=== PATIENT | female | born 1970 | race Caucasian/White ===

== ENCOUNTER → 2017-06-24 | Outpatient (CLI) | payer OTHER ==
[~2017-06-24] MED LIST: ATOR-22 PO; DILT60TA PO; OMEP40CA41 PO; TRAZ100T29 PO; ZNTT/150 PO
--- NOTE | 2017-06-24 13:56 | DIAGNOSTIC IMAGING REPORT ---
GASTRIC EMPTYING CLINICAL HISTORY: 46 years-old Female presenting with gastroesophageal reflux without esophagitis, abdominal bloating. TECHNIQUE: Following the oral administration of 1.1 mCi of technetium 99m sulfur colloid in egg sandwich and 8 ounces of water, static abdominal images are obtained anteriorly and posteriorly at 0 minutes, 1 hour, 2 hour, and 4 hour time intervals. Gastric emptying was calculated utilizing the geometric mean method. COMPARISON: None. FINDINGS: There is approximately 78% activity remaining at the 1 hour time interval, 49% remaining at the 2 hour time interval (normal is less than 60%), and 1% activity remaining at the 4 hour time interval (normal is less than 10%). IMPRESSION: Findings are consistent with normal gastric emptying. Electronically signed by: Alvaro Bey M.D. 06/24/2017 1:54 PM Dictated Date/Time: 06/24/2017 1:53 PM
== END | disposition home or self-care (01) ==
LOC: C.NUCL 08:48
PROVIDERS: ATTEND Physician Assistant
DX: K21.9 Gastro-esophageal reflux disease without esophagitis (principal); R14.0 Abdominal distension (gaseous)

== ENCOUNTER 2017-08-31 12:20 | Observation (INO) | payer OTHER ==
[~2017-08-31] VITALS: Ht 165.1 cm; Wt 102.4 kg
[2017-08-31] MEDS ORDERED: ZNTT/150 PO (12:52)
[2017-08-31] MEDS ORDERED: ATOR-22 PO (12:52)
[2017-08-31] MEDS ORDERED: DILT60TA PO (12:52)
[2017-08-31] MEDS ORDERED: TRAZ100T29 PO (12:52)
[2017-08-31] MEDS ORDERED: OMEP40CA41 PO (12:52)
--- NOTE | 2017-08-31 13:11 | DIAGNOSTIC IMAGING REPORT ---
CHEST ONE VIEW PORTABLE HISTORY: 46 years-old Female Chest Pain acute atypical chest pain. Initial exam COMPARISON: None available TECHNIQUE: Portable upright AP view of the chest FINDINGS: Cardiomediastinal and hilar silhouettes are within normal limits. There is no pneumothorax or pleural effusion. Subsegmental left basilar opacity suggests atelectasis. No lobar airspace consolidation. The bones are grossly intact. IMPRESSION: Subsegmental left basilar opacity suggests atelectasis. Otherwise unremarkable chest. The above report was generated using voice recognition software. It may contain grammatical, syntax or spelling errors. Electronically signed by: Yemi Diamond M.D. 08/31/2017 1:09 PM Dictated Date/Time: 08/31/2017 1:08 PM
[2017-08-31 13:40] LABS: BASO % 0.2 %; BASO ABS # 0.02 K/uL (0-0.2); COMPLETE YES; EOS % 1.6 %; HEMATOCRIT 44.2 % (37-47); IG% 0.2 %; LYMPH % 27.8 %; LYMPH ABS # 2.47 K/uL (1.2-3.4); MEAN CELL VOLUME 93.1 fL (80-100); MEAN CORPUSCULAR HEMOGLOBIN 31.8 pg (25-34); MEAN CORPUSCULAR HGB CONC 34.2 g/dl (32-36); MEAN PLATELET VOLUME 9.8 fL (7.4-10.4); MONO % 7.6 %; NEUT % 62.6 %; PLATELET COUNT 191 K/uL (130-400); RED BLOOD COUNT 4.75 M/uL (4.2-5.4); WHITE BLOOD COUNT 8.87 K/uL (4.8-10.8)
[2017-08-31 13:57] LABS: BLOOD UREA NITROGEN 9 mg/dl (7-18); BUN/CREATININE RATIO 11.6 (10-20); CALCIUM 9.4 mg/dl (8.5-10.1); CARBON DIOXIDE 23 mmol/L (21-32); CHLORIDE 106 mmol/L (98-107); CREATININE 0.79 mg/dl (0.60-1.20); GLUCOSE 99 mg/dl (70-99); POTASSIUM 3.8 mmol/L (3.5-5.1); SODIUM 139 mmol/L (136-145)
[2017-08-31 14:02] LABS: CKMB/CK RATIO 0.9 (0-3.0)
--- NOTE | 2017-08-31 14:40 | DIAGNOSTIC IMAGING REPORT ---
CT SCAN OF THE BRAIN WITHOUT IV CONTRAST CLINICAL HISTORY: Headache. COMPARISON STUDY: No priors. TECHNIQUE: Unenhanced axial CT scan of the brain is performed from the vertex to the skull base. A dose lowering technique was utilized adhering to the principles of ALARA. CT DOSE: 638.56 mGycm FINDINGS: Brain parenchyma: The brain parenchyma is normal in appearance. There is no hemorrhage, mass effect, or evidence of acute territorial ischemia by CT criteria. Rose-white matter is preserved. No extra-axial fluid collection is seen. Ventricles, sulci, cisterns: Normal in configuration. Intracranial vasculature: The visualized intracranial vasculature at the skull base is normal in appearance. Calvarium: Unremarkable. Sinuses and mastoids: The visualized paranasal sinuses are clear. The mastoid air cells are well pneumatized. Orbits: The bony orbits are grossly intact. IMPRESSION: No acute intracranial abnormality. Electronically signed by: Erwin Madrigal M.D. 08/31/2017 2:38 PM Dictated Date/Time: 08/31/2017 2:37 PM
--- NOTE | 2017-08-31 15:32 | History and Physical ---
History & Physical Date & Time of Service: Aug 31, 2017 at 15:15 Chief Complaint: Chest Pain Primary Care Physician: Krzysztof Otero M.D. History of Present Illness Source: patient Ms. Dey began having chest pain this morning at [address]. She describes it as painful chest pressure, pain radiating up her neck into her jaw. No associated nausea, no diaphoresis, no sob. She took sublingual nitro and the chest pain relaxed though she is still experiencing some pain to the left of her lower sternum. She then developed a headache with blurred vision which continues to persist. She does have a history of headache with sinus pressure. She has a history of tachycardia for which she takes Cardizem and at times experiences palpitations with exertion. She had a cardiac catheterization three years ago because she kept falling asleep. She did not have a sleep study at that time. She has not had any recent illnesses or fevers, no cough except in the morning from sinus drainage. She has had difficulty with multiple abx and steroids for sublingual lymph node pain. She has recently been having more difficulty with her reflux. She has trouble swallowing with both solids and liquids to the point that she has to spit liquids out when she drinks sometimes. She has been told in the past this is due to an inflamed sublingual lymph node. She does not cough after drinking. Family History Mother - alive - history of htn, hld, Father - - she was not in contact with him Two daughters, one son - bipolar and htn Social History Smoking Status: Current Every Day Smoker (2 cigarrettes per day) Smokeless Tobacco Use: No Alcohol Use: none Drug Use: none Marital Status: single Housing status: lives alone Occupational Status: employed (home health aid) Immunizations History of Influenza Vaccine: No History of Tetanus Vaccine?: Yes History of Pneumococcal: No History of Hepatitis B Vaccine: Yes Multi-Drug Resistant Organisms History of MDRO: No Allergies Coded Allergies: Acetaminophen (Unverified Allergy, Unknown, ., 08/31/17) Hydrocodone (Unverified Allergy, Unknown, ., 08/31/17) Home Medications Scheduled Atorvastatin (Lipitor), 20 MG PO HS Diltiazem Hcl (Diltiazem Hcl), 60 MG PO BID Omeprazole (Prilosec), 40 MG PO DAILY Ranitidine (Zantac), 150 MG PO HS Trazodone Hcl (Trazodone), 100 MG PO HS Review of Systems Constitutional: No fever Respiratory: No sputum, No shortness of breath Cardiovascular: + chest pain, + palpitations (when moving around, associated sob) Abdomen: No pain, No nausea, No vomiting Physical Exam Vital Signs Date Time Temp Pulse Resp B/P (MAP) Pulse Ox O2 Delivery O2 Flow Rate FiO2 08/31/17 13:29 77 18 121/86 95 Room Air 08/31/17 12:28 37.0 91 23 117/79 97 Room Air 08/31/17 12:28 73 General: no distress Eyes: normal inspection, PERLL Respiratory: chest non tender, clear to auscultation, normal breath sounds, no respiratory distress, no accessory muscle use Cardiac: regular rate and rhythm, no rub or gallop, no murmur, no edema, no jvd GI/: active bowel sounds, no abd pain or tenderness, soft, non distended Extremities: normal range of motion, normal strength, non tender Neuro/Psych: alert and oriented x 3, normal mood and affect Skin: normal color, dry Diagnostics Laboratory Results Results Past 24 Hours Test 08/31/17 13:18 Range/Units White Blood Count 8.87 4.8-10.8 K/uL Red Blood Count 4.75 4.2-5.4 M/uL Hemoglobin 15.1 12.0-16.0 g/dL Hematocrit 44.2 37-47 % Mean Corpuscular Volume 93.1 80-100 fL Mean Corpuscular Hemoglobin 31.8 25-34 pg Mean Corpuscular Hemoglobin Concent 34.2 32-36 g/dl Platelet Count 191 130-400 K/uL Mean Platelet Volume 9.8 7.4-10.4 fL Neutrophils (%) (Auto) 62.6 % Lymphocytes (%) (Auto) 27.8 % Monocytes (%) (Auto) 7.6 % Eosinophils (%) (Auto) 1.6 % Basophils (%) (Auto) 0.2 % Neutrophils # (Auto) 5.55 1.4-6.5 K/uL Lymphocytes # (Auto) 2.47 1.2-3.4 K/uL Monocytes # (Auto) 0.67 0.11-0.59 K/uL Eosinophils # (Auto) 0.14 0-0.5 K/uL Basophils # (Auto) 0.02 0-0.2 K/uL RDW Standard Deviation 41.6 36.4-46.3 fL RDW Coefficient of Variation 12.4 11.5-14.5 % Immature Granulocyte % (Auto) 0.2 % Immature Granulocyte # (Auto) 0.02 0.00-0.02 K/uL D-Dimer 370 0-500 ug/L FEU Sodium Level 139 136-145 mmol/L Potassium Level 3.8 3.5-5.1 mmol/L Chloride Level 106 98-107 mmol/L Carbon Dioxide Level 23 21-32 mmol/L Anion Gap 10.0 3-11 mmol/L Blood Urea Nitrogen 9 7-18 mg/dl Creatinine 0.79 0.60-1.20 mg/dl Est Creatinine Clear Calc Drug Dose 104.8 ml/min Estimated GFR () 103.3 Estimated GFR (Non- 89.1 BUN/Creatinine Ratio 11.6 10-20 Random Glucose 99 70-99 mg/dl Calcium Level 9.4 8.5-10.1 mg/dl Total Creatine Kinase 132 26-192 U/L Creatine Kinase MB 1.2 0.5-3.6 ng/ml Creatine Kinase MB Ratio 0.9 0-3.0 Troponin I < 0.015 0-0.045 ng/ml Diagnostic Radiology CT SCAN OF THE BRAIN WITHOUT IV CONTRAST CLINICAL HISTORY: Headache. COMPARISON STUDY: No priors. TECHNIQUE: Unenhanced axial CT scan of the brain is performed from the vertex to the skull base. A dose lowering technique was utilized adhering to the principles of ALARA. CT DOSE: 638.56 mGycm FINDINGS: Brain parenchyma: The brain parenchyma is normal in appearance. There is no hemorrhage, mass effect, or evidence of acute territorial ischemia by CT criteria. Rose-white matter is preserved. No extra-axial fluid collection is seen. Ventricles, sulci, cisterns: Normal in configuration. Intracranial vasculature: The visualized intracranial vasculature at the skull base is normal in appearance. Calvarium: Unremarkable. Sinuses and mastoids: The visualized paranasal sinuses are clear. The mastoid air cells are well pneumatized. Orbits: The bony orbits are grossly intact. IMPRESSION: No acute intracranial abnormality. CHEST ONE VIEW PORTABLE HISTORY: 46 years-old Female Chest Pain acute atypical chest pain. Initial exam COMPARISON: None available TECHNIQUE: Portable upright AP view of the chest FINDINGS: Cardiomediastinal and hilar silhouettes are within normal limits. There is no pneumothorax or pleural effusion. Subsegmental left basilar opacity suggests atelectasis. No lobar airspace consolidation. The bones are grossly intact. IMPRESSION: Subsegmental left basilar opacity suggests atelectasis. Otherwise unremarkable chest. EKG Normal sinus rhythm Normal ECG Impression Assessment and Plan Ms. Dey is a 46 year old woman here for substernal chest pain radiating to her neck and jaw while driving in her car this morning. She does not have a known cardiac history and does not have a family history of heart disease. Chest pain r/o CAD - admit observation to Telemetry, serial cardiac enzymes, ECG , echo stress in the morning, smoking cessation counselling given GERD - the patient is describing a history of swallowing difficulties and reflux. Continue ppi and ranitidine. She should follow up with GI outpatient if CAD is ruled out. She last saw Lady Riojas in May for complaints of reflux. , she has persistent issues with her tonsils and posterior pharyngeal irritation , will continue ENT follow up Tachycardia - continue Cardizem, telemetry monitoring Headache/blurred vision - CT showed no acute process, likely due to nitro HLD - continue statin Resuscitation status - full resuscitation DVT prophylaxis - SCDs BOOK CRITIC Physician Supervision Note: I interviewed and examined the patient. Discussed with Liseth Lozoya NP and agree with findings and plan as documented in the note. Any exceptions or clarifications are listed here: None This patient has been bothered by chronic persistent posterior pharyngeal problems with her tonsils and has seen ENT and multiple occasions. She states she feels a lot of her symptoms are related to that also irritation of her swallowing. Despite that fact that when she developed her chest discomfort she called the ambulance and she had her symptoms relieved by nitroglycerin this could be if this were soft to spasm. The patient also states she has increased stress in her life has problems sleeping only sleeps 2 hours at night despite taking trazodone medication. Her vital signs are currently stable EKG is without acute changes and initial troponins were unremarkable Her heart is regular without murmurs her lungs are clear without wheezes or crackles posterior pharynx is erythematous without evidence of lymphadenopathy thrush or ulcerations her abdomen is normoactive bowel sounds soft there is no epigastric pain next Atypical chest pain and a young female with normal EKG and presentation We'll have the patient for recurrent troponins and if negative pursue cardiac stress testing in the morning to rule out cardiac origin of her pain if negative would recommend continue following with ENT and possibly GI med Documented By: Adilson Chandler Level of Care Telemetry Resuscitation Status FULL RESUSCITATION VTE Prophylaxis VTE Risk Assessment Done? Y/N: Yes Risk Level: Low Given or contraindicated: SCD's Social Service Consult None Apply
[2017-08-31] MEDS ORDERED: ALUMINUM/MAGNESIUM/SIMETH (MAALOX MAX) 30 ML UDC PO PRN (16:00)
[2017-08-31] MEDS ORDERED: LORAZEPAM 0.5 MG TAB PO PRN (16:00)
[2017-08-31] MEDS ORDERED: NITROGLYCERIN 0.4 MG SL PER TAB CHARGE SL PRN (16:00)
[2017-08-31] MEDS ORDERED: POLYETHYLENE (MIRALAX) 17 GM PACK PO PRN (16:00)
--- NOTE | 2017-08-31 17:48 | EMERGENCY ROOM VISIT NOTE ---
History Report prepared by Stefanie: Cruz Russell Under the Supervision of: Dr. Jose Lugo D.O. First contact with patient: 12:21 Stated Complaint: CHEST PAIN History of Present Illness The patient is a 46 year old female who presents to the Emergency Room with complaints of resolved chest tightness that occurred prior to arrival. The patient was given nitro and aspirin which helped the pain. The patient additionally is complaining of tightness in her neck and left shoulder and shortness of breath. She states that she has never had pain like this in the past. She states that she has a history of hyperlipidemia and SVT. Patient denies diabetes, aortic issues, hypertension, CAD, and history of sudden at a young age. Patient denies swelling of calves, recent trips, history of immobilization or recent surgery, prior history of DVT, hemoptysis, history of malignancy, history of smoking, or control/estrogen use. Pt denies headache, change in vision, fevers, nausea, vomiting, diarrhea, pain with urination, and melena. Source of History: patient Onset: prior to arrival Position: chest Quality: other (tightness) Timing: resolved Modifying Factors (Relieving): other (nitro and aspirin) Associated Symptoms: + neck pain Note: Associated symptoms: shoulder pain Review of Systems See HPI for pertinent positives & negatives. A total of 10 systems reviewed and were otherwise negative. Past Medical & Surgical Medical Problems: (1) Chest pain (2) HLD (hyperlipidemia) (3) SVT (supraventricular tachycardia) Social History Smoking Status: Current Every Day Smoker Marital Status: other (legally ) Occupation Status: employed Current/Historical Medications Scheduled Atorvastatin (Lipitor), 20 MG PO HS Diltiazem Hcl (Diltiazem Hcl), 60 MG PO BID Omeprazole (Prilosec), 40 MG PO DAILY Ranitidine (Zantac), 150 MG PO HS Trazodone Hcl (Trazodone), 100 MG PO HS Allergies Coded Allergies: Acetaminophen (Unverified Allergy, Unknown, ., 08/31/17) Hydrocodone (Unverified Allergy, Unknown, ., 08/31/17) Physical Exam Vital Signs Date Time Temp Pulse Resp B/P (MAP) Pulse Ox O2 Delivery O2 Flow Rate FiO2 08/31/17 17:04 78 126/81 08/31/17 16:46 77 08/31/17 14:30 80 18 138/80 94 Room Air 08/31/17 13:29 77 18 121/86 95 Room Air 08/31/17 12:28 37.0 91 23 117/79 97 Room Air 08/31/17 12:28 73 Physical Exam GENERAL: Sitting up in bed, disheveled, no acute distress, non-toxic EYE EXAM: normal conjunctiva OROPHARYNX: no exudate, no erythema, lips, buccal mucosa, and tongue normal and mucous membranes are moist NECK: supple, no nuchal rigidity, no adenopathy, non-tender LUNGS: Clear to auscultation. Normal chest wall mechanics HEART: no murmurs, S1 normal and S2 normal CHEST; No reproducible chest wall pain ABDOMEN: abdomen soft, non-tender, normo-active bowel sounds, no masses, no rebound or guarding. BACK: Back is symmetrical on inspection and there is no deformity, no midline tenderness, no CVA tenderness. SKIN: no rashes and no bruising UPPER EXTREMITIES: upper extremities are grossly normal. LOWER EXTREMITIES: No pitting edema. NEURO EXAM: Normal sensorium, cranial nerves II-XII grossly intact, normal speech, no gross weakness of arms, no gross weakness of legs. Gross sensation intact. Medical Decision & Procedures ER Provider Diagnostic Interpretation: Radiology results as stated below per my review and the radiologist's interpretation: CHEST ONE VIEW PORTABLE HISTORY: 46 years-old Female Chest Pain acute atypical chest pain. Initial exam COMPARISON: None available TECHNIQUE: Portable upright AP view of the chest FINDINGS: Cardiomediastinal and hilar silhouettes are within normal limits. There is no pneumothorax or pleural effusion. Subsegmental left basilar opacity suggests atelectasis. No lobar airspace consolidation. The bones are grossly intact. IMPRESSION: Subsegmental left basilar opacity suggests atelectasis. Otherwise unremarkable chest. The above report was generated using voice recognition software. It may contain grammatical, syntax or spelling errors. Electronically signed by: Yemi Diamond M.D. 08/31/2017 1:09 PM Dictated Date/Time: 08/31/2017 1:[address] SCAN OF THE BRAIN WITHOUT IV CONTRAST CLINICAL HISTORY: Headache. COMPARISON STUDY: No priors. TECHNIQUE: Unenhanced axial CT scan of the brain is performed from the vertex to the skull base. A dose lowering technique was utilized adhering to the principles of ALARA. CT DOSE: 638.56 mGycm FINDINGS: Brain parenchyma: The brain parenchyma is normal in appearance. There is no hemorrhage, mass effect, or evidence of acute territorial ischemia by CT criteria. Rose-white matter is preserved. No extra-axial fluid collection is seen. Ventricles, sulci, cisterns: Normal in configuration. Intracranial vasculature: The visualized intracranial vasculature at the skull base is normal in appearance. Calvarium: Unremarkable. Sinuses and mastoids: The visualized paranasal sinuses are clear. The mastoid air cells are well pneumatized. Orbits: The bony orbits are grossly intact. IMPRESSION: No acute intracranial abnormality. Electronically signed by: Erwin Madrigal M.D. 08/31/2017 2:38 PM Dictated Date/Time: 08/31/2017 2:37 PM Laboratory Results 08/31/17 13:18 Red Blood Count 4.75, Mean Corpuscular Volume 93.1, Mean Corpuscular Hemoglobin 31.8, Mean Corpuscular Hemoglobin Concent 34.2, Mean Platelet Volume 9.8, Neutrophils (%) (Auto) 62.6, Lymphocytes (%) (Auto) 27.8, Monocytes (%) (Auto) 7.6, Eosinophils (%) (Auto) 1.6, Basophils (%) (Auto) 0.2, Neutrophils # (Auto) 5.55, Lymphocytes # (Auto) 2.47, Monocytes # (Auto) 0.67, Eosinophils # (Auto) 0.14, Basophils # (Auto) 0.02 08/31/17 13:18 Test 08/31/17 13:18 White Blood Count 8.87 K/uL (4.8-10.8) Red Blood Count 4.75 M/uL (4.2-5.4) Hemoglobin 15.1 g/dL (12.0-16.0) Hematocrit 44.2 % (37-47) Mean Corpuscular Volume 93.1 fL (80-100) Mean Corpuscular Hemoglobin 31.8 pg (25-34) Mean Corpuscular Hemoglobin Concent 34.2 g/dl (32-36) Platelet Count 191 K/uL (130-400) Mean Platelet Volume 9.8 fL (7.4-10.4) Neutrophils (%) (Auto) 62.6 % Lymphocytes (%) (Auto) 27.8 % Monocytes (%) (Auto) 7.6 % Eosinophils (%) (Auto) 1.6 % Basophils (%) (Auto) 0.2 % Neutrophils # (Auto) 5.55 K/uL (1.4-6.5) Lymphocytes # (Auto) 2.47 K/uL (1.2-3.4) Monocytes # (Auto) 0.67 K/uL (0.11-0.59) Eosinophils # (Auto) 0.14 K/uL (0-0.5) Basophils # (Auto) 0.02 K/uL (0-0.2) RDW Standard Deviation 41.6 fL (36.4-46.3) RDW Coefficient of Variation 12.4 % (11.5-14.5) Immature Granulocyte % (Auto) 0.2 % Immature Granulocyte # (Auto) 0.02 K/uL (0.00-0.02) D-Dimer 370 ug/L FEU (0-500) Anion Gap 10.0 mmol/L (3-11) Est Creatinine Clear Calc Drug Dose 104.8 ml/min Estimated GFR () 103.3 Estimated GFR (Non- 89.1 BUN/Creatinine Ratio 11.6 (10-20) Calcium Level 9.4 mg/dl (8.5-10.1) Total Creatine Kinase 132 U/L (26-192) Creatine Kinase MB 1.2 ng/ml (0.5-3.6) Creatine Kinase MB Ratio 0.9 (0-3.0) Troponin I < 0.015 ng/ml (0-0.045) Laboratory results per my review. ECG Indication: chest pain Rate (beats per minute): 70 Rhythm: sinus rhythm Findings: no acute ischemic change, other (normal axis) ED Course ED COURSE: Vital signs were reviewed and showed normal vitals The patients medical record was reviewed The above diagnostic studies were performed and reviewed. ED treatments and interventions as stated above. 1221: The patient was evaluated in room C12. A complete history and physical examination was performed. 1459: I reviewed the patient's case with Dr. Chandler [facility]. He will evaluate the patient for further management. 1510: Upon reevaluation, the patient is feeling well.I discussed my findings with the patient and she understands and agrees with the treatment plan. Based on the patients age, coexisting illnesses, exam and lab findings the decision to treat as an inpatient was made. The patient remained stable while under my care. The patient will be evaluated for further management. Medical Decision Differential diagnoses includes but is not limited to acute coronary syndrome, myocardial infarction, pericarditis, pulmonary embolus, aortic dissection, pneumonia, pneumothorax, musculoskeletal, shingles, esophageal. Patient is a 46-year-old female who is a smoker and has hyperlipidemia presents to ER with left-sided chest heaviness associated shortness of breath, arm pain and jaw pain. Chest pain resolved via aspirin and nitroglycerin via EMS. Following the nitroglycerin she had a headache and slightly blurred vision. CBC along with BMP and troponin were unremarkable. D-dimer was negative. EKG was nondiagnostic. CT head was unremarkable due to the headache and blurry vision. Chest x-ray shows no obvious pneumonia. Patient was updated bedside. Patient was admitted for a chest pain rule out. Medication Reconcilliation Current Medication List: was personally reviewed by me Blood Pressure Screening Patient's blood pressure: Normal blood pressure Consults Time Called: 1451 Consulting Physician: SONJA Cordero Returned Call: [phone] I reviewed the patient's case with SONJA Cordero. He will evaluate the patient for further management. Impression Primary Impression: Precordial chest pain Additional Impressions: Jaw pain Headache Blurry vision Scribe Attestation The scribe's documentation has been prepared under my direction and personally reviewed by me in its entirety. I confirm that the note above accurately reflects all work, treatment, procedures, and medical decision making performed by me. Departure Information Dispostion Being Evaluated By Hospitalist Referrals Krzysztof Otero M.D. (PCP) Problem Qualifiers Additional Impressions: Headache Headache type: unspecified Headache chronicity pattern: acute headache Intractability: not intractable Qualified Codes: R51 - Headache
[2017-08-31 17:50] VITALS: BP 131/83; PULSE 79; TEMP 36.8; O2SAT 96; Ht 165.1 cm; Wt 102.4 kg
[2017-08-31] MEDS ORDERED: IV FLUIDS COMPLETED PRN (18:15)
[2017-08-31 18:52] VITALS: BP 136/78; PULSE 77; TEMP 36.7; O2SAT 96
[2017-08-31] MEDS: DILTIAZEM HCL 60 MG TAB PO SCH (20:02)
[2017-08-31] MEDS ORDERED: ATORVASTATIN 20 MG TAB PO SCH (21:00)
[2017-08-31] MEDS ORDERED: TRAZODONE HCL 100 MG TAB PO SCH (21:00)
[2017-08-31] MEDS ORDERED: RANITIDINE HCL 150 MG TAB PO SCH (21:00)
[2017-08-31 22:49] LABS: CKMB/CK RATIO 0.8 (0-3.0)
[2017-09-01 00:54] VITALS: BP 96/58; PULSE 71; TEMP 36.6; O2SAT 95
[2017-09-01 04:00] VITALS: BP 114/70; PULSE 97; TEMP 37; O2SAT 93
[2017-09-01 04:30] LABS: CKMB/CK RATIO 1.4 (0-3.0)
[2017-09-01 07:26] VITALS: BP 111/65; PULSE 89; TEMP 36.6; O2SAT 95
[2017-09-01] MEDS ORDERED: ASPIRIN 81 MG ECTAB PO SCH (09:00)
[2017-09-01] MEDS ORDERED: PANTOprazole SOD 40 MG TAB PO SCH (09:00)
--- NOTE | 2017-09-01 11:11 | Discharge Instructions ---
Discharge Instructions Date of Service Sep 01, 2017. Admission Reason for Admission: Chest Pain Discharge Discharge Diagnosis / Problem: Chest pain Discharge Goals Goal(s): Decrease discomfort Activity Recommendations Activity Limitations: resume your previous activity . Instructions / Follow-Up Instructions / Follow-Up Because your stress test, EKGs and cardiac enzymes were normal it, it is very unlikely that your chest pain is because of your heart. It is possible that your chest pain is due to your chronic reflux and because you are also having some trouble swallowing, I would suggest you follow up with GI. Please follow up with Dr. Olguin's office concerning acid reflux and difficulty swallowing Current Hospital Diet Patient's current hospital diet: AHA Diet (Heart Healthy) Discharge Diet Recommended Diet: AHA Diet (Heart Healthy) Procedures Procedures Performed: Echo stress Chest x ray Head CT Pending Studies Studies pending at discharge: no Medical Emergencies . Who to Call and When: Medical Emergencies: If at any time you feel your situation is an emergency, please call 911 immediately. . Non-Emergent Contact Non-Emergency issues call your: Primary Care Provider Call Non-Emergent contact if: your pain is not controlled, your pain is worsening, you have any medication questions . . "Provider Documentation" section prepared by Zelda Lozoya. . VTE Core Measure Inpt VTE Proph given/why not?: SCD's
[2017-09-01] MEDS: DILTIAZEM HCL 60 MG TAB PO SCH (11:15)
[2017-09-01 11:17] VITALS: BP 108/72; PULSE 84; TEMP 36.6; O2SAT 97
--- NOTE | 2017-09-01 11:51 | Discharge Summary ---
Discharge Summary Date of Service Sep 01, 2017. Discharge Summary Admission Date: Aug 31, 2017 at 16:15 Discharge Date: Sep 01, 2017 Discharge Disposition: Home Principal Diagnosis: chest pain Immunizations: Have You Had Influenza Vaccine: No History of Tetanus Vaccine?: Yes History of Pneumococcal: No History of Hepatitis B Vaccine: Yes Procedures: Head CT IMPRESSION: No acute intracranial abnormality. CXR IMPRESSION: Subsegmental left basilar opacity suggests atelectasis. Otherwise unremarkable chest. Medication Reconciliation Continued Medications: Atorvastatin (Lipitor) 20 Mg Tab 20 MG PO HS, TAB Diltiazem Hcl (Diltiazem Hcl) 60 Mg Tab 60 MG PO BID Omeprazole (Prilosec) 40 Mg Cap 40 MG PO DAILY, CAP Ranitidine (Zantac) 150 Mg Tab 150 MG PO HS, TAB Trazodone Hcl (Trazodone) 100 Mg Tab 100 MG PO HS, TAB Discharge Exam Review of Systems: Respiratory: No cough, No sputum, No shortness of breath Cardiovascular: No chest pain, No palpitations Abdomen: No pain, No nausea, No vomiting Physical Exam: General Appearance: WD/WN, no apparent distress Respiratory/Chest: chest non-tender, lungs clear, normal breath sounds, no respiratory distress Cardiovascular: regular rate, rhythm, no edema, no murmur Abdomen / GI: normal bowel sounds, non tender, soft Extremities: normal inspection Neurologic/Psychiatric: alert, normal mood/affect, oriented x 3 Skin: normal color, warm/dry Hospital Course Ms. Dey is a 46 year old woman here for substernal chest pain radiating to her neck and jaw while driving in her car 09/01. She does not have a known cardiac history and does not have a family history of heart disease. Chest pain r/o CAD - admit observation to Telemetry, serial cardiac enzymes, ECG , echo stress in the morning, smoking cessation GERD - the patient is describing a history of swallowing difficulties and reflux. Continue ppi and ranitidine. She should follow up with GI outpatient if CAD is ruled out. She last saw Lady Riojas in May for complaints of reflux. Tachycardia - continue Cardizem, telemetry monitoring Headache/blurred vision - CT showed no acute process, likely due to nitro HLD - continue statin Resuscitation status - full resuscitation DVT prophylaxis - SCDs Total Time Spent: Less than 30 minutes This includes examination of the patient, discharge planning, medication reconciliation, and communication with other providers. Discharge Instructions Please refer to the electronic Patient Visit Report (Discharge Instructions) for additional information.
[2017-09-01 12:11] VITALS: BP 108/72; PULSE 84; TEMP 36.6; O2SAT 97
--- NOTE | 2017-09-01 12:37 | EXERCISE STRESS ECHO ---
*NOTICE TO RECEIVING LIBERTARIAN AGENCY This information is strictly Confidential and protected under [place] law. [place] law prohibits you from making any further disclosure of this information unless further disclosure is expressly permitted by the written consent of the person to whom it pertains or is authorized by law. A general authorization for the release of medical or other information is not sufficient for this purpose. Hospital accepts no responsibility if the information is made available to any other person, INCLUDING THE PATIENT. Interpretation Summary * Name: KAMAR REYES Study Date: 09/01/2017 08:27 AM BP: 100/77 mmHg * Patient Location: .2E\S\E207\S\1 HR: 83 * : 1970 (M/d/yyyy) Gender: Female Height: 65 in * Age: 46 yrs Ethnicity: MS Weight: 227 lb * Ordering Physician: Zelda Lozoya * Referring Physician: Self, Referred * Performed By: Linh Villalobos RCS * * Reason For Study: Chest Pain * BSA: 2.1 m2 * -- Conclusions -- * Stress Echo: * 1. Negative stress echo for ischemia at 87 % MPHR. * 2. Negative exercise ECG for ischemia at 87 % MPHR. * 3. Appropriate blood pressure response to exercise. * 4. No arrhythmia. * 5. Study terminated due to leg cramps. No chest pain reported. * 6. Fair to good exercise tolerance. * ECHO: * 1. Normal left ventricular size and systolic function. EF 55-60%. No regional wall motion abnormalities. Type 1 diastolic dysfunction. No left ventricular hypertrophy. * 2. No significant valvular abnormalities. * 3. Normal estimated right ventricular systolic pressure. Procedure Details * ECHOEX, CPT #[id number] * ECHO COLOR FLOW, CPT #[id number] * ECHO DOPPLER, CPT #[id number] Left Ventricle * The left ventricle is normal in size. * There is normal left ventricular wall thickness. * Left ventricular systolic function is normal. * Resting wall motion: Normal. Stress wall motion: Appropriate increase in Left ventricular systolic function and decrease in cavity size. No stress induced segmental wall motion abnormalities. * The left ventricular ejection fraction increases normally with stress. The left ventricular end-systolic cavity size reduces post-stress (normal response). The left ventricular wall motion with stress is normal. Right Ventricle * The right ventricle is normal in size and function. Atria * The left atrial size is normal. * Right atrial size is normal. * There is no evidence of atrial septal defect, but resolution does not allow assessment for a patent foramen ovale. Mitral Valve * The mitral valve is grossly normal. * There is no mitral valve stenosis. * There is trace mitral regurgitation. Tricuspid Valve * The tricuspid valve is not well visualized, but is grossly normal. * There is no tricuspid stenosis. * There is trace tricuspid regurgitation. Aortic Valve * The aortic valve is trileaflet. * No hemodynamically significant valvular aortic stenosis. * No aortic regurgitation is present. Pulmonic Valve * The pulmonic valve is not well seen, but is grossly normal. * There is no significant pulmonary regurgitation. Great Vessels * The aortic root is normal size. * Ascending aorta of normal dimension * Aortic arch of normal dimension. * Normal IVC size and inspiratory collapse Pericardium * There is no pericardial effusion. Stress Parameters * NSR 83 bpm. * Stress ECG: No ST changes. No arrhythmias. * No arrhythmia were noted with stress. * Rest heart rate was '83' BPM. * Rest blood pressure was '100/77' * Maximum heart rate achieved was 151 bpm. * Maximum heart rate was 87 % of maximum age-predicted heart rate. * Maximum blood pressure was '169/84' * Total exercise time was '7:09' * Maximum exercise MET level achieved was '8.7' METS * Maximum treadmill speed was '3.4' miles per hour. * Maximum treadmill elevation was '14'% grade. * Exercise was terminated due to 'fatigue and leg cramp' * Normal blood pressure response to exercise. MMode 2D Measurements and Calculations IVSd 10 cm IVSs 1.2 cm LVIDd 4.3 cm LVIDs 2.9 cm LVPWd 1.0 cm LVPWs 1.2 cm IVS/LVPW 0.95 FS 32.1 % EDV(Teich) 82.9 ml ESV(Teich) 32.7 ml EF(Teich) 60.5 % EDV(cubed) 79.3 ml ESV(cubed) 24.9 ml EF(cubed) 68.6 % % IVS thick 19.6 % % LVPW thick 12.9 % LV mass(C)d 146.6 grams LV mass(C)dI 70.2 grams/m\S\2 LV mass(C)s 103.3 grams LV mass(C)sI 49.5 grams/m\S\2 SV(Teich) 50.1 ml SI(Teich) 24.0 ml/m\S\2 SV(cubed) 54.4 ml SI(cubed) 26.1 ml/m\S\2 Ao root diam 3.4 cm Ao root area 9.2 cm\S\2 ACS 1.7 cm LA dimension 4.1 cm asc Aorta Diam 3.3 cm LA/Ao 1.2 LVAd ap4 32.5 cm\S\2 LVLd ap4 8.1 cm EDV(MOD-sp4) 105.8 ml EDV(sp4-el) 110.1 ml LVAs ap4 18.8 cm\S\2 LVLs ap4 7.0 cm ESV(MOD-sp4) 44.4 ml ESV(sp4-el) 43.9 ml EF(MOD-sp4) 58.0 % EF(sp4-el) 60.1 % LVAd ap2 27.6 cm\S\2 LVLd ap2 7.8 cm EDV(MOD-sp2) 80.7 ml EDV(sp2-el) 83.2 ml LVAs ap2 18.3 cm\S\2 LVLs ap2 7.2 cm ESV(MOD-sp2) 40.6 ml ESV(sp2-el) 39.4 ml EF(MOD-sp2) 49.6 % EF(sp2-el) 52.6 % LVLd %diff -8.69 % EDV(MOD-bp) 100.5 ml LVLs %diff 3.7 % ESV(MOD-bp) 36.6 ml EF(MOD-bp) 63.5 % SV(MOD-sp4) 61.4 ml SI(MOD-sp4) 29.4 ml/m\S\2 SV(MOD-sp2) 40.1 ml SI(MOD-sp2) 19.2 ml/m\S\2 SV(MOD-bp) 63.9 ml SI(MOD-bp) 30.6 ml/m\S\2 SV(sp4-el) 66.2 ml SI(sp4-el) 31.7 ml/m\S\2 SV(sp2-el) 43.8 ml SI(sp2-el) 21.0 ml/m\S\2 Doppler Measurements and Calculations MV E max vita 51.8 cm/sec MV A max vita 63.6 cm/sec MV E/A 0.81 MV P1/2t max vita 52.4 cm/sec MV P1/2t 84.3 msec MVA(P1/2t) 2.6 cm\S\2 MV dec slope 182.2 cm/sec\S\2 MV dec time 0.32 sec Ao V2 max 107.9 cm/sec Ao max PG 4.7 mmHg Ao max PG (full) 2.7 mmHg LV V1 max PG 2.0 mmHg LV V1 max 70.2 cm/sec TV E max vita 38.6 cm/sec PA V2 max 87.2 cm/sec PA max PG 3.0 mmHg TR max vita 197.6 cm/sec RVSP(TR) 18.6 mmHg RAP systole 3.0 mmHg
== END 2017-09-01 12:39 | disposition home or self-care (01) ==
LOC: EDBD 12:20 → C.EDC 12:21 → C.2E 16:15 → ENRESERV 16:44
PROVIDERS: ADMIT Internal Medicine; ATTEND Internal Medicine
DX: R07.9 Chest pain, unspecified (principal); R00.0 Tachycardia, unspecified; E78.5 Hyperlipidemia, unspecified; F17.200 Nicotine dependence, unspecified, uncomplicated; Z79.899 Other long term (current) drug therapy

== ENCOUNTER → 2018-02-23 | Outpatient (CLI) | payer OTHER ==
[~2018-02-23] MED LIST changes: +MAGN400T6 PO; +RANI150T85 PO; -TRAZ100T29 PO; -ZNTT/150 PO
--- NOTE | 2018-02-24 09:13 | PULMONARY FUNCTION TEST ---
CLINICAL DATA: A 47-year-old female with a weight of 232 pounds and a height of [address] Otero for evaluation of shortness of breath. She has been a smoker in the past for at least 14 years. Spirometry pre and post-bronchodilator, lung volumes, and DLCO were performed. FINDINGS: Prebronchodilator spirometry demonstrates mild obstructive airways disease. FVC was 117% of predicted. FEV1 is 82% of predicted. FEV1/FVC ratio was 69% predicted. ETN34-60 was 26% of predicted. There was no improvement after inhaled bronchodilator. Lung volumes are normal. DLCO was mildly reduced at 63% of predicted. IMPRESSION: Mild obstructive airways disease with no significant improvement after inhaled bronchodilator. No evidence of significant air trapping. Mild reduction in DLCO. MTDD
== END | disposition home or self-care (01) ==
LOC: C.RC 10:04
PROVIDERS: ATTEND Hospitalist
DX: R06.02 Shortness of breath (principal)

== ENCOUNTER → 2018-03-01 | Day surgery (SDC) | payer OTHER ==
[2018-02-19 10:17] VITALS: Ht 165.1 cm; Wt 104.5 kg
[~2018-03-01] VITALS: Ht 165.1 cm; Wt 104.5 kg
[~2018-03-01] MED LIST changes: +ATROPINE SULFATE 0.1 MG/ML 5ML SYR IV PRN; +EpHEDrine SULFATE INJ 50 MG/ML AMP IV PRN; +FENTANYL CITRATE INJ 50 MCG/1 ML 2 ML VIAL ONE; +LIDOCAINE HCL 2% 2 ML VIAL (20MG/ML) ONE; +PROPOFOL IV EMULSION 10 MG/ML 20 ML VIAL IV ONE; +SODIUM CHLORIDE 0.9% 500ML 500 ML IV ONE
--- NOTE | 2018-03-01 13:06 | Endo History and Physical ---
History & Physical Date of Service: Mar 01, 2018. Chief Complaint: Gerd, Dysphagia Referring Physician: Dr. Krzysztof Otero History of Present Illness 47 yo CF who presents for EGD secondary to GERD and dysphagia. Past Surgical History Hx Cardiac Surgery: No Hx Internal Defibrillator: No Hx Pacemaker: No Hx Abdominal Surgery: No (TUBAL LIGATION, ) Hx of Implantable Prosthesis: No Hx Post-Op Nausea and Vomiting: No Hx Cancer Surgery: No Hx Thoracic Surgery: No Hx Orthopedic: Yes (LUMBAR LAMINECTOMY/DISCECTOMY, LUMBAR FUSION) Hx Urinary Tract Surgery: No Family History None Social History Smoking Status: Former Smoker Hx Substance Use: No Hx Alcohol Use: Yes (VERY RARELY) Allergies Coded Allergies: Hydrocodone (Unverified Allergy, Unknown, HIVES ALL OVER BODY, 03/01/18) Current Medications Reported Home Medications Medications Dose Route/Sig Max Daily Dose Days Date Category Mag-Ox (Magnesium Oxide) 400 Mg Tab 400 Mg PO QAM 02/19/18 Reported Lipitor (Atorvastatin Calcium) 20 Mg Tab 20 Mg PO HS 08/31/17 Reported Zantac (Ranitidine HCl) 150 Mg Tab 150 Mg PO HS 08/31/17 Reported Prilosec (Omeprazole) 40 Mg Cap 40 Mg PO QAM 08/31/17 Reported Diltiazem Hcl 60 Mg Tab 60 Mg PO BID 08/31/17 Reported Vital Signs Weight (Kilograms): 104.55 Height (Feet): 5 Height (Inches): 5 Date Time Temp Pulse Resp B/P (MAP) Pulse Ox O2 Delivery O2 Flow Rate FiO2 03/01/18 12:10 36.6 80 18 129/77 (94) 96 Room Air Physical Exam General Appearance: WD/WN, no apparent distress Respiratory/Chest: Auscultation: breath sounds normal Cardiovascular: Heart Auscultation: RRR Abdomen: Bowel Sounds: normal Inspection & Palpation: soft, non-distended, no tenderness, guarding & rebound Assessment and Plan Assessment: 47 yo CF who presents for EGD secondary to GERD and dysphagia. Plan: Proceed with EGD.
--- NOTE | 2018-03-01 13:26 | GI REPORT ---
Procedure Date: 03/01/2018 12:24 PM Procedure: Upper GI endoscopy Indications: Dysphagia Medicines: Monitored Anesthesia Care Complications: No immediate complications. Estimated Blood Loss: Estimated blood loss: none. Procedure: Pre-Anesthesia Assessment: - Prior to the procedure, a History and Physical was performed, and patient medications and allergies were reviewed. The patient's tolerance of previous anesthesia was also reviewed. The risks and benefits of the procedure and the sedation options and risks were discussed with the patient. All questions were answered, and informed consent was obtained. Prior Anticoagulants: The patient has taken no previous anticoagulant or antiplatelet agents. ASA Grade Assessment: III - A patient with severe systemic disease. After reviewing the risks and benefits, the patient was deemed in satisfactory condition to undergo the procedure. After obtaining informed consent, the endoscope was passed under direct vision. Throughout the procedure, the patient's blood pressure, pulse, and oxygen saturations were monitored continuously. The scope was introduced through the mouth, and advanced to the second part of duodenum. The upper GI endoscopy was accomplished without difficulty. The patient tolerated the procedure well. Findings: The esophagus was normal. Localized mild inflammation characterized by erythema was found in the gastric antrum. Biopsies were taken with a cold forceps for histology. A small hiatal hernia was present. The examined duodenum was normal. Impression: - Normal esophagus. - Gastritis. Biopsied. - Small hiatal hernia. - Normal examined duodenum. Recommendation: - Resume previous diet. - Continue present medications. - Await pathology results. - Return to primary care physician as previously scheduled. Nick Olguin DO 03/01/2018 1:25:43 PM This report has been signed electronically. Note Initiated On: 03/01/2018 12:24 PM I attest to the content of the Intraoperative Record and orders documented therein, exceptions below
--- NOTE | 2018-03-01 13:27 | Discharge Instructions ---
Endoscopy Patient Instructions Date / Procedure(s) Performed Mar 01, 2018. EGD Allergy Information Coded Allergies: Hydrocodone (Unverified Allergy, Unknown, HIVES ALL OVER BODY, 03/01/18) Discharge Date / Findings Mar 01, 2018. Gastritis s/p biopsies Hiatal hernia Medication Instructions OK to resume all medications today as prescribed Reported Home Medications Medications Dose Route/Sig Max Daily Dose Days Date Category Mag-Ox (Magnesium Oxide) 400 Mg Tab 400 Mg PO QAM 02/19/18 Reported Lipitor (Atorvastatin Calcium) 20 Mg Tab 20 Mg PO HS 08/31/17 Reported Zantac (Ranitidine HCl) 150 Mg Tab 150 Mg PO HS 08/31/17 Reported Prilosec (Omeprazole) 40 Mg Cap 40 Mg PO QAM 08/31/17 Reported Diltiazem Hcl 60 Mg Tab 60 Mg PO BID 08/31/17 Reported Provider Instructions Activity Restrictions - No exercising or heavy lifting for 24 hours. - Do not drink alcohol the day of the procedure. - Do not drive a car or operate machinery until the day after the procedure. - Do not make any important decisions or sign important papers in 24 hours after the procedure. Following Day: - Return to full activity which may include returning to work/school. Diet Start your diet with liquids and light foods (jello, soup, juice, toast). Then eat your usual diet if not nauseated. Treatment For Common After Affects For mild abdominal pain, bloating, or excessive gas: - Rest - Eat lightly - Lie on right side Follow-Up Information Follow-up with Dr. Krzysztof Otero as scheduled Anesthesia Information What You Should Know You have had a procedure that required some medicine to reduce anxiety and discomfort. This treatment is called moderate sedation. After receiving the treatment, you may be sleepy, but you will be able to breathe on your own. The effects of the treatment may last for several hours. Follow these instructions along with Activity/Diet recommendations noted above: * Do NOT do anything where dizziness or clumsiness would be dangerous. * Rest quietly at home today, then you can be up and about tomorrow. * Have a responsible person stay with you the rest of today. * You may have had an I.V. today. If so, you may take the dressing off later today. Recommendations Call your doctor if: * Trouble breathing * Continuous vomiting for more than 24 hours * Temperature above 101 degrees * Severe abdominal pain or bloating * Pain not relieved by pain medicine ordered * There is increased drainage or redness from any incision * A large amount of rectal bleeding greater than 2-3 tablespoons. (If you had a polyp/s removed or have hemorrhoids, a small amount of blood - from the rectum is to be expected.) * You have any unanswered questions or concerns. IN THE EVENT OF A SERIOUS EMERGENCY, GO TO THE NEAREST EMERGENCY ROOM Your discharge instructions were prepared by provider Nick Olguin. Patient Instructions Signature Page Aisha Dey Patient (or Guardian) Signature/Date: I have read and understand the instructions given to me by my caregivers. Caregiver/RN/Doctor Signature/Date: The above-named patient and/or guardian has received patient instructions on this date. + Original Patient Signature Page (only) stays with chart. Please make copy for patient.
[2018-03-01 13:43] VITALS: BP 121/81; PULSE 68; O2SAT 95
--- NOTE | 2018-03-01 13:50 | Anesthesiology Progress Note ---
Anesthesia Post Op Note Date & Time Mar 01, 2018 at 13:50 Vital Signs Vital Signs Past 12 Hours Date Time Temp Pulse Resp B/P (MAP) Pulse Ox O2 Delivery O2 Flow Rate FiO2 03/01/18 13:33 71 18 130/87 (101) 97 Room Air 03/01/18 13:23 73 18 115/69 (84) 95 Room Air 03/01/18 12:10 36.6 80 18 129/77 (94) 96 Room Air Notes Mental Status: alert / awake / arousable, participated in evaluation Pt Amnestic to Procedure: Yes Nausea / Vomiting: adequately controlled Pain: adequately controlled Airway Patency, RR, SpO2: stable & adequate BP & HR: stable & adequate Hydration State: stable & adequate Anesthetic Complications: no major complications apparent
== END | disposition home or self-care (01) ==
LOC: C.GI 11:45
PROVIDERS: ATTEND Internal Medicine
DX: R13.10 Dysphagia, unspecified (principal); K21.9 Gastro-esophageal reflux disease without esophagitis; J44.9 Chronic obstructive pulmonary disease, unspecified; E78.5 Hyperlipidemia, unspecified; I10 Essential (primary) hypertension; K31.9 Disease of stomach and duodenum, unspecified; K44.9 Diaphragmatic hernia without obstruction or gangrene; K29.70 Gastritis, unspecified, without bleeding; Z68.38 Body mass index [BMI] 38.0-38.9, adult; Z88.5 Allergy status to narcotic agent; Z98.1 Arthrodesis status; Z87.891 Personal history of nicotine dependence